=== PATIENT | male | born 1975 | race Caucasian/White ===

== ENCOUNTER 2020-03-11 20:52 | Emergency (ER) | payer MEDICARE, MEDICAID ==
[~2020-03-11] VITALS: Ht 177.8 cm; Wt 145.5 kg
[2020-03-11 21:41] LABS: BASO # 0.1 (0.0-0.2); BASO % 0.7 % (0.0-2.0); GRAN # 5.7 (1.4-6.5); HEMATOCRIT 40.5 % (42.0-52.0); HEMOGLOBIN 13.8 g/dl (13.5-18.0); LYMPH # 2.5 (1.2-3.4); LYMPH % 27.6 % (20.0-51.0); MEAN CELL VOLUME 88 fl (80.0-100.0); MEAN CORPUSCULAR HEMOGLOBIN 30 pg (27.0-31.0); MEAN CORPUSCULAR HGB CONC 34 g/dl (33.0-37.0); MEAN PLATELET VOLUME 11.2 fl (7.4-10.4); MONO # 0.6 (0.1-0.6); MONO % 6.5 % (1.7-9.3); PLATELET COUNT 140 K/mm3 (130-400); REDCELL DISTRIBUTION WIDTH-CV 12.9 % (11.5-14.5)
[2020-03-11 21:48] LABS: D-DIMER < 200.00 ng/mLDDu (200-230)
[2020-03-11 21:52] LABS: ALANINE AMINOTRANSFERASE 49 U/L (4-49); ALBUMIN 3.9 gm/dL (3.5-5.0); ALKALINE PHOSPHATASE 91 U/L (50-136); ANION GAP 10 mmol/L (7-16); AST,SGOT 39 U/L (15-37); BILIRUBIN,TOTAL 0.5 mg/dL (0.0-1.0); BLOOD UREA NITROGEN 9 mg/dL (9-20); C-REACTIVE PROTEIN 2.3 mg/dL (0.0-0.9); CALCIUM 8.6 mg/dL (8.4-10.2); CARBON DIOXIDE 21 mmol/L (22-30); CHLORIDE 107 mmol/L (98-107); CREATINE KINASE 150 U/L (55-170); GLUCOSE 200 mg/dL (74-106); LIPASE 63 U/L (23-300); POTASSIUM 3.5 mmol/L (3.4-5.0); SODIUM 138 mmol/L (137-145); TOTAL PROTEIN 6.8 gm/dL (6.4-8.2)
[2020-03-11 22:03] LABS: TROPONIN-I < 0.012 ng/mL (0.000-0.035)
[2020-03-11 22:06] LABS: PROLACTIN 12.7 ng/mL (3.7-17.9)
[2020-03-11 23:00] VITALS: BP 140/71; PULSE 82; TEMP 98.4
[2020-03-12] MEDS ORDERED: OMNICEF 300MG300 MG PO (17:34)
[2020-03-13] MEDS ORDERED: MACROBID 1100 MG/CAP PO (13:13)
== END 2020-03-11 23:05 | disposition home or self-care (01) ==
LOC: COL.ER 20:52
PROVIDERS: Emergency Medicine
DX: R55 Syncope and collapse (principal); J45.909 Unspecified asthma, uncomplicated; F17.210 Nicotine dependence, cigarettes, uncomplicated

== ENCOUNTER 2020-03-12 14:08 | Emergency (ER) | payer MEDICARE, MEDICAID ==
[~2020-03-12] VITALS: Ht 177.8 cm; Wt 142.3 kg
[2020-03-12 14:17] VITALS: TEMP 97.3
[2020-03-12 15:44] LABS: BASO # 0.1 (0.0-0.2); BASO % 0.6 % (0.0-2.0); GRAN # 5.6 (1.4-6.5); GRAN % 58.1 % (42.2-75.2); HEMATOCRIT 43.4 % (42.0-52.0); HEMOGLOBIN 14.6 g/dl (13.5-18.0); LYMPH # 3.3 (1.2-3.4); LYMPH % 34.1 % (20.0-51.0); MEAN CELL VOLUME 89 fl (80.0-100.0); MEAN CORPUSCULAR HEMOGLOBIN 30 pg (27.0-31.0); MEAN CORPUSCULAR HGB CONC 34 g/dl (33.0-37.0); MEAN PLATELET VOLUME 11.5 fl (7.4-10.4); MONO # 0.6 (0.1-0.6); MONO % 6.5 % (1.7-9.3); PLATELET COUNT 156 K/mm3 (130-400); REDCELL DISTRIBUTION WIDTH-CV 12.9 % (11.5-14.5)
[2020-03-12 16:06] LABS: ALBUMIN 4.2 gm/dL (3.5-5.0); BILIRUBIN,TOTAL 0.4 mg/dL (0.0-1.0); C-REACTIVE PROTEIN 1.9 mg/dL (0.0-0.9); CALCIUM 9.3 mg/dL (8.4-10.2); CREATININE, serum 0.8 (0.66-1.25); POTASSIUM 3.9 mmol/L (3.4-5.0); TOTAL PROTEIN 7.5 gm/dL (6.4-8.2)
[2020-03-12 17:04] LABS: COLLECTION METHOD CLEAN CATCH
[2020-03-12 17:18] LABS: PH 6 (5-8); SQUAMOUS EPITHELIAL None Seen /hpf; URINE APPEARANCE Clear; URINE BACTERIA Rare /hpf; URINE BILIRUBIN Negative (NEGATIVE); URINE BLOOD Negative (NEGATIVE); URINE COLOR Yellow; URINE GLUCOSE Negative (NEGATIVE); URINE KETONE Negative (NEGATIVE); URINE LEUKOCYTE ESTERASE 1+ (NEGATIVE); URINE NITRATE Negative (NEGATIVE); URINE PROTEIN(semi-quant) Negative (NEGATIVE); URINE RBC 0-2 /hpf; URINE UROBILINOGEN Negative (NEGATIVE)
[2020-03-12] MEDS ORDERED: OMNICEF 300MG300 MG PO (17:34)
[2020-03-12 17:45] VITALS: BP 132/59; PULSE 82
[2020-03-13] MEDS ORDERED: MACROBID 1100 MG/CAP PO (13:13)
== END 2020-03-12 17:45 | disposition home or self-care (01) ==
LOC: COL.ER 14:08
PROVIDERS: Emergency Medicine
DX: N39.0 Urinary tract infection, site not specified (principal); F17.210 Nicotine dependence, cigarettes, uncomplicated
CPT/HCPCS: J7030

== ENCOUNTER 2020-05-15 09:39 | Emergency (ER) | payer MEDICARE, MEDICAID ==
[~2020-05-15] VITALS: Ht 177.8 cm; Wt 113.6 kg
[~2020-05-15 09:39] MED LIST: MACROBID 1100 MG/CAP PO; OMNICEF 300MG300 MG PO
[2020-05-15 10:20] LABS: BASO # 0.1 (0.0-0.2); BASO % 0.7 % (0.0-2.0); GRAN # 3.8 (1.4-6.5); GRAN % 54.3 % (42.2-75.2); HEMATOCRIT 44.7 % (42.0-52.0); HEMOGLOBIN 15.2 g/dl (13.5-18.0); LYMPH # 2.6 (1.2-3.4); LYMPH % 37.3 % (20.0-51.0); MEAN CELL VOLUME 86 fl (80.0-100.0); MEAN CORPUSCULAR HEMOGLOBIN 29 pg (27.0-31.0); MEAN CORPUSCULAR HGB CONC 34 g/dl (33.0-37.0); MEAN PLATELET VOLUME 11.8 fl (7.4-10.4); MONO # 0.5 (0.1-0.6); PLATELET COUNT 155 K/mm3 (130-400); RED BLOOD COUNT 5.22 M/mm3 (4.20-5.60); REDCELL DISTRIBUTION WIDTH-CV 12.3 % (11.5-14.5)
[2020-05-15 10:34] LABS: ALANINE AMINOTRANSFERASE 65 U/L (4-49); ALBUMIN 4.3 gm/dL (3.5-5.0); ALKALINE PHOSPHATASE 101 U/L (50-136); ANION GAP 13 mmol/L (7-16); AST,SGOT 69 U/L (15-37); BILIRUBIN,TOTAL 0.7 mg/dL (0.0-1.0); BLOOD UREA NITROGEN 10 mg/dL (9-20); CALCIUM 9.5 mg/dL (8.4-10.2); CARBON DIOXIDE 19 mmol/L (22-30); CHLORIDE 106 mmol/L (98-107); GLUCOSE 160 mg/dL (74-106); POTASSIUM 4.1 mmol/L (3.4-5.0); SODIUM 139 mmol/L (137-145); TOTAL PROTEIN 7.6 gm/dL (6.4-8.2)
[2020-05-15 11:03] LABS: TROPONIN-I < 0.012 ng/mL (0.000-0.035)
[2020-05-15 12:07] VITALS: TEMP 98.4
[2020-05-15 16:05] LABS: COLLECTION METHOD CLEAN CATCH
[2020-05-15 16:15] LABS: MUCOUS Present /lpf; PH 6 (5-8); SQUAMOUS EPITHELIAL None Seen /hpf; URINE APPEARANCE Clear; URINE BACTERIA Rare /hpf; URINE BILIRUBIN Negative (NEGATIVE); URINE BLOOD Negative (NEGATIVE); URINE COLOR Amber; URINE GLUCOSE Negative (NEGATIVE); URINE KETONE 1+ (NEGATIVE); URINE LEUKOCYTE ESTERASE Negative (NEGATIVE); URINE NITRATE Positive (NEGATIVE); URINE PROTEIN(semi-quant) Negative (NEGATIVE); URINE UROBILINOGEN >=4.0 mg/dL (NEGATIVE)
[2020-05-15] MEDS ORDERED: CIPRO 500MG TA500 MG PO (16:21)
[2020-05-15 16:41] VITALS: BP 115/72; PULSE 65
== END 2020-05-15 16:48 | disposition home or self-care (01) ==
LOC: COL.ER 09:39
PROVIDERS: Emergency Medicine
DX: N39.0 Urinary tract infection, site not specified (principal)
CPT/HCPCS: J2405; J7030

== ENCOUNTER 2020-06-15 07:55 | Emergency (ER) | payer MEDICARE, MEDICAID ==
[~2020-06-15] VITALS: Ht 172.7 cm; Wt 142.3 kg
[~2020-06-15 07:55] MED LIST changes: +CIPRO 500MG TA500 MG PO
[2020-06-15 09:16] LABS: ALBUMIN 4.4 gm/dL (3.5-5.0); BILIRUBIN,TOTAL 0.5 mg/dL (0.0-1.0); CALCIUM 9.6 mg/dL (8.4-10.2); CREATININE, serum 0.73 (0.66-1.25); POTASSIUM 4.1 mmol/L (3.4-5.0); TOTAL PROTEIN 7.3 gm/dL (6.4-8.2)
[2020-06-15 11:16] VITALS: BP 113/74; PULSE 68; TEMP 98.4
== END 2020-06-15 11:30 | disposition home or self-care (01) ==
LOC: COL.ER 07:55
PROVIDERS: Family Medicine
DX: T43.621A Poisoning by amphetamines, accidental (unintentional), initial encounter (principal); T43.291A Poisoning by other antidepressants, accidental (unintentional), initial encounter

== ENCOUNTER → 2020-07-01 | Outpatient (CLI) | payer MEDICARE, MEDICAID | LOC: COL.RAD 10:17 | DX: R39.12 Poor urinary stream (principal); R33.8 Other retention of urine ==

== ENCOUNTER 2020-07-15 11:11 | Emergency (ER) | payer MEDICARE, MEDICAID ==
[2020-07-15 11:39] VITALS: TEMP 97.1
[2020-07-15] MEDS ORDERED: RT ADVAIR 228 DISKUS IH (13:49)
[2020-07-15] MEDS ORDERED: COLACE 100100 MG/CAP PO (13:50)
[2020-07-15] MEDS ORDERED: ZYLOPRIM 100MG100 MG PO (13:50)
[2020-07-15] MEDS ORDERED: LATUDA60 MG PO (13:51)
[2020-07-15] MEDS ORDERED: SYNTHROID0.1 MG/TAB PO (13:51)
[2020-07-15] MEDS ORDERED: GLUCOPHAGE500 MG/TAB PO (13:51)
[2020-07-15] MEDS ORDERED: PAXIL 30MG30 MG PO (13:52)
[2020-07-15] MEDS ORDERED: PRILOTC (13:52)
[2020-07-15] MEDS ORDERED: FLOMAX 0.40.4 MG/CAP PO (13:53)
[2020-07-15 16:28] VITALS: BP 115/78; PULSE 63
== END 2020-07-15 16:28 | disposition home or self-care (01) ==
LOC: COL.ER 11:11
DX: S80.211A Abrasion, right knee, initial encounter (principal); S80.01XA Contusion of right knee, initial encounter; S20.211A Contusion of right front wall of thorax, initial encounter; R40.2410 Glasgow coma scale score 13-15, unspecified time; I25.2 Old myocardial infarction; E03.9 Hypothyroidism, unspecified; F20.9 Schizophrenia, unspecified; J45.909 Unspecified asthma, uncomplicated; K21.9 Gastro-esophageal reflux disease without esophagitis; F17.210 Nicotine dependence, cigarettes, uncomplicated; Z79.890 Hormone replacement therapy; Z79.84 Long term (current) use of oral hypoglycemic drugs; W10.9XXA Fall (on) (from) unspecified stairs and steps, initial encounter; Y92.89 Other specified places as the place of occurrence of the external cause

== ENCOUNTER 2020-07-23 16:44 | Emergency (ER) | payer MEDICARE, MEDICAID ==
[~2020-07-23 16:44] MED LIST changes: +COLACE 100100 MG/CAP PO; +FLOMAX 0.40.4 MG/CAP PO; +GLUCOPHAGE500 MG/TAB PO; +LATUDA60 MG PO; +PAXIL 30MG30 MG PO; +PRILOTC; +RT ADVAIR 228 DISKUS IH; +SYNTHROID0.1 MG/TAB PO; +ZYLOPRIM 100MG100 MG PO
[2020-07-23 16:55] VITALS: TEMP 98.9
[2020-07-23 18:47] VITALS: BP 104/58
[2020-07-23 18:57] LABS: BASO # 0.1 (0.0-0.2); BASO % 0.7 % (0.0-2.0); GRAN # 5.9 (1.4-6.5); GRAN % 57.1 % (42.2-75.2); HEMATOCRIT 44.4 % (42.0-52.0); HEMOGLOBIN 14.9 g/dl (13.5-18.0); LYMPH # 3.7 (1.2-3.4); LYMPH % 35.6 % (20.0-51.0); MEAN CELL VOLUME 88 fl (80.0-100.0); MEAN CORPUSCULAR HEMOGLOBIN 29 pg (27.0-31.0); MEAN CORPUSCULAR HGB CONC 34 g/dl (33.0-37.0); MEAN PLATELET VOLUME 11.8 fl (7.4-10.4); MONO # 0.6 (0.1-0.6); MONO % 6.2 % (1.7-9.3); PLATELET COUNT 174 K/mm3 (130-400); RED BLOOD COUNT 5.06 M/mm3 (4.20-5.60); REDCELL DISTRIBUTION WIDTH-CV 12.8 % (11.5-14.5)
[2020-07-23 19:07] LABS: ALBUMIN 4.3 gm/dL (3.5-5.0); BILIRUBIN,TOTAL 0.4 mg/dL (0.0-1.0); CALCIUM 9.6 mg/dL (8.4-10.2); CREATININE, serum 0.74 (0.66-1.25); POTASSIUM 4.5 mmol/L (3.4-5.0); TOTAL PROTEIN 7.2 gm/dL (6.4-8.2)
[2020-07-23] MEDS ORDERED: PROTONIX 40MG T40 MG PO (19:27)
[2020-07-23 19:39] VITALS: PULSE 64
== END 2020-07-23 19:40 | disposition home or self-care (01) ==
LOC: COL.ER 16:44
PROVIDERS: Physician Assistant
DX: K92.0 Hematemesis (principal); E11.9 Type 2 diabetes mellitus without complications; F20.9 Schizophrenia, unspecified; F17.210 Nicotine dependence, cigarettes, uncomplicated; Z23 Encounter for immunization; Z79.51 Long term (current) use of inhaled steroids; Z79.83 Long term (current) use of bisphosphonates; Z79.84 Long term (current) use of oral hypoglycemic drugs; Z79.890 Hormone replacement therapy; Z79.899 Other long term (current) drug therapy

== ENCOUNTER 2021-04-09 20:32 | Emergency (ER) | payer MEDICARE, MEDICAID ==
[~2021-04-09] VITALS: Ht 177.8 cm; Wt 113.6 kg
[~2021-04-09 20:32] MED LIST changes: +BACTRIM DS 8001 TAB PO; +PROTONIX 40MG T40 MG PO
[2021-04-09 20:46] VITALS: TEMP 97.8
[2021-04-09 23:27] LABS: BASO # 0.1 (0.0-0.2); BASO % 0.6 % (0.0-2.0); GRAN # 6.4 (1.4-6.5); GRAN % 55.9 % (42.2-75.2); HEMOGLOBIN 14.4 g/dl (13.5-18.0); LYMPH # 4.3 (1.2-3.4); MEAN CELL VOLUME 89 fl (80.0-100.0); MEAN CORPUSCULAR HEMOGLOBIN 30 pg (27.0-31.0); MEAN CORPUSCULAR HGB CONC 34 g/dl (33.0-37.0); MEAN PLATELET VOLUME 11.4 fl (7.4-10.4); MONO # 0.7 (0.1-0.6); MONO % 6.1 % (1.7-9.3); PLATELET COUNT 164 K/mm3 (130-400); RED BLOOD COUNT 4.85 M/mm3 (4.20-5.60); REDCELL DISTRIBUTION WIDTH-CV 13.2 % (11.5-14.5)
[2021-04-09 23:43] LABS: BILIRUBIN,TOTAL 0.4 mg/dL (0.0-1.0); CALCIUM 8.7 mg/dL (8.4-10.2); CREATININE, serum 0.68 (0.66-1.25); POTASSIUM 3.6 mmol/L (3.4-5.0); TOTAL PROTEIN 6.5 gm/dL (6.4-8.2)
[2021-04-09 23:44] LABS: C-REACTIVE PROTEIN 0.5 mg/dL (0.0-0.9)
[2021-04-10 00:25] LABS: COLLECTION METHOD CLEAN CATCH
[2021-04-10 00:35] LABS: MUCOUS Present /lpf; PH 6 (5-8); SQUAMOUS EPITHELIAL None Seen /hpf; URINE APPEARANCE Hazy; URINE BACTERIA None Seen /hpf; URINE BILIRUBIN Negative (NEGATIVE); URINE BLOOD Negative (NEGATIVE); URINE COLOR Yellow; URINE GLUCOSE Negative (NEGATIVE); URINE KETONE Negative (NEGATIVE); URINE LEUKOCYTE ESTERASE Trace (NEGATIVE); URINE NITRATE Negative (NEGATIVE); URINE PROTEIN(semi-quant) Negative (NEGATIVE); URINE UROBILINOGEN Negative (NEGATIVE)
[2021-04-10] MEDS ORDERED: CEPHALEXIN500 M1 PO (01:30)
[2021-04-10 01:51] VITALS: BP 132/70; PULSE 62
== END 2021-04-10 01:51 | disposition home or self-care (01) ==
LOC: COL.ER 20:32
PROVIDERS: Emergency Medicine; Nurse Practitioner
DX: N39.0 Urinary tract infection, site not specified (principal); I25.2 Old myocardial infarction
CPT/HCPCS: J0696; J2405; J7030

== ENCOUNTER 2021-04-23 19:30 | Emergency (ER) | payer MEDICARE, MEDICAID ==
[~2021-04-23] VITALS: Ht 185.4 cm; Wt 113.6 kg
[~2021-04-23 19:30] MED LIST changes: +CEPHALEXIN500 M1 PO
[2021-04-23 19:39] VITALS: TEMP 97.1
[2021-04-23 20:06] LABS: BASO # 0.1 (0.0-0.2); BASO % 0.4 % (0.0-2.0); GRAN # 12.6 (1.4-6.5); GRAN % 74.1 % (42.2-75.2); HEMATOCRIT 44.1 % (42.0-52.0); HEMOGLOBIN 15.2 g/dl (13.5-18.0); LYMPH # 3.5 (1.2-3.4); LYMPH % 20.7 % (20.0-51.0); MEAN CELL VOLUME 88 fl (80.0-100.0); MEAN CORPUSCULAR HEMOGLOBIN 30 pg (27.0-31.0); MEAN CORPUSCULAR HGB CONC 35 g/dl (33.0-37.0); MEAN PLATELET VOLUME 11.4 fl (7.4-10.4); MONO # 0.7 (0.1-0.6); MONO % 4.4 % (1.7-9.3); PLATELET COUNT 170 K/mm3 (130-400); RED BLOOD COUNT 5.02 M/mm3 (4.20-5.60); REDCELL DISTRIBUTION WIDTH-CV 13.2 % (11.5-14.5)
[2021-04-23 20:20] LABS: ALBUMIN 4.2 gm/dL (3.5-5.0); BILIRUBIN,TOTAL 0.4 mg/dL (0.0-1.0); C-REACTIVE PROTEIN 1.4 mg/dL (0.0-0.9); CALCIUM 9.2 mg/dL (8.4-10.2); CREATININE, serum 0.69 (0.66-1.25); POTASSIUM 3.5 mmol/L (3.4-5.0); TOTAL PROTEIN 6.9 gm/dL (6.4-8.2)
[2021-04-23 20:43] LABS: COLLECTION METHOD CLEAN CATCH
[2021-04-23 20:49] LABS: PH 6 (5-8); SQUAMOUS EPITHELIAL None Seen /hpf; URINE APPEARANCE Clear; URINE BACTERIA None Seen /hpf; URINE BILIRUBIN Negative (NEGATIVE); URINE BLOOD Negative (NEGATIVE); URINE COLOR Yellow; URINE GLUCOSE Negative (NEGATIVE); URINE KETONE Negative (NEGATIVE); URINE LEUKOCYTE ESTERASE 1+ (NEGATIVE); URINE NITRATE Negative (NEGATIVE); URINE PROTEIN(semi-quant) Negative (NEGATIVE); URINE RBC 0-2 /hpf; URINE UROBILINOGEN Negative (NEGATIVE)
[2021-04-23] MEDS ORDERED: ZOFRAN ODT4 MG PO (22:58)
[2021-04-23] MEDS ORDERED: LEVAQUIN 750MG750 M1 PO (22:58)
[2021-04-24 00:17] VITALS: BP 115/71; PULSE 60
== END 2021-04-24 00:19 | disposition home or self-care (01) ==
LOC: COL.ER 19:30
PROVIDERS: Nurse Practitioner Primary Care
DX: N39.0 Urinary tract infection, site not specified (principal); R91.8 Other nonspecific abnormal finding of lung field; E11.9 Type 2 diabetes mellitus without complications; F17.210 Nicotine dependence, cigarettes, uncomplicated; Z20.822 Contact with and (suspected) exposure to COVID-19; Z79.84 Long term (current) use of oral hypoglycemic drugs
CPT/HCPCS: J1956; J2405; J7030; Q9967

== ENCOUNTER 2021-09-22 11:39 | Emergency (ER) | payer MEDICARE, MEDICAID ==
[~2021-09-22 11:39] MED LIST changes: +LEVAQUIN 750MG750 M1 PO; +ZOFRAN ODT4 MG PO
[2021-09-22 13:02] VITALS: TEMP 98.6
[2021-09-22 18:03] LABS: BASO # 0.1 K/mm3 (0.0-0.2); BASO % 0.7 % (0.0-2.0); GRAN # 4.8 K/mm3 (1.4-6.5); GRAN % 53.3 % (42.2-75.2); HEMATOCRIT 41.5 % (42.0-52.0); HEMOGLOBIN 14.1 g/dl (13.5-18.0); LYMPH # 3.5 K/mm3 (1.2-3.4); LYMPH % 38.5 % (20.0-51.0); MEAN CELL VOLUME 88 fl (80.0-100.0); MEAN CORPUSCULAR HEMOGLOBIN 30 pg (27-31); MEAN CORPUSCULAR HGB CONC 34 g/dl (33.0-37.0); MEAN PLATELET VOLUME 11.4 fl (7.4-10.4); MONO # 0.6 K/mm3 (0.1-0.6); MONO % 7.1 % (1.7-9.3); PLATELET COUNT 155 K/mm3 (130-400); RED BLOOD COUNT 4.72 M/mm3 (4.20-5.60)
[2021-09-22 18:35] LABS: ALANINE AMINOTRANSFERASE 18 U/L (0-55); ALBUMIN 3.9 gm/dL (3.5-5.0); ALKALINE PHOSPHATASE 62 U/L (40-150); ANION GAP 11 mmol/L (7-16); AST,SGOT 18 U/L (5-34); BILIRUBIN,TOTAL 0.4 mg/dL (0.2-1.2); BLOOD UREA NITROGEN 13 mg/dL (9-21); CALCIUM 9.1 mg/dL (8.4-10.2); CARBON DIOXIDE 24 mmol/L (22-29); CHLORIDE 106 mmol/L (98-107); CREATININE, serum 0.68 mg/dL (0.72-1.25); GLUCOSE 86 mg/dL (70-99); POTASSIUM 4.2 mmol/L (3.5-4.5); SODIUM 141 mmol/L (136-145); TOTAL PROTEIN 6.7 gm/dL (6.2-8.1)
[2021-09-22 18:48] LABS: ACETAMINOPHEN < 1.0 ug/mL (10-30); ALCOHOL(ethanol),MEDICAL < 10 mg/dL (0-10); SALICYLATE < 5.0 mg/dL (15.0-30.0)
[2021-09-22 18:55] LABS: TSH w REFLEX 1.708 uIU/mL (0.350-4.940)
[2021-09-22 21:15] VITALS: BP 150/78; PULSE 76
== END 2021-09-22 23:58 | disposition home or self-care (01) ==
LOC: COL.ER 11:39
PROVIDERS: Nurse Practitioner
DX: R46.89 Other symptoms and signs involving appearance and behavior (principal); E11.9 Type 2 diabetes mellitus without complications; J45.909 Unspecified asthma, uncomplicated; E03.9 Hypothyroidism, unspecified; K21.9 Gastro-esophageal reflux disease without esophagitis; M10.9 Gout, unspecified; Z20.822 Contact with and (suspected) exposure to COVID-19; Z79.890 Hormone replacement therapy; Z79.899 Other long term (current) drug therapy; Z79.84 Long term (current) use of oral hypoglycemic drugs; Z79.51 Long term (current) use of inhaled steroids